=== PATIENT | male | born 1960 | race Caucasian/White ===

== ENCOUNTER 2016-04-25 11:11 | Outpatient (CLI) | payer MEDICAID ==
[~2016-04-25] VITALS: Ht 185.4 cm; Wt 145.5 kg
--- NOTE | ~2016-04-25 | HEMODYNAMI ---
PATIENT:MUSA WALDEN MEDICAL RECORD: [id number] : 62 LOCATION:DCRYSTAL ADMISSION DATE: 04/25/16 Generatedon:04/25/201615:10 Patient name: MUSA WADLEN Patient #: [id number] SSN: D OB: 1960 Date of study: 04/25/2016 Page: Of Hemodynamic Procedure Report Patient Data Patient Demographics Procedure consent was obtained First Name: MUSA Gender: Male Last Name: IRAM : 1960 Patient #: [id number] Age: 55 year(s) Race: Unknown Additional ID: [id number] Contact details Address: [address] [place] [address] State: [place] City: [place] Zip code: [address] Past Medical History Allergies Allergen Reaction Date Comments Reported Other allergy 04/25/2016 CEPHALOXIN Admission Admission Data Admission Date: 04/25/2016 Admission Time: 11:11 Admit Source: Other Lab Results Lab Result Date: 04/25/2016 Lab Result Time: 0:00 Biochemistry Name Units Result Min Max Creatinine mg/dl 0.9 --(-*--)-- 0.6 1.3 CBC Name Units Result Min Max Hemoglobin g/dl 14.7 --(-*--)-- 13.5 17.5 Procedure Procedure Types Cath Procedure Diagnostic Procedure [facility] w/Coronaries Procedure Description Procedure Date Procedure Date: 04/25/2016 Procedure Start Time: 14:48 Procedure End Time: 15:09 Procedure Staff Name Function Musa Diaz MD Performing Physician Romina Jeffers RN Nurse Sherry Ann RT Monitor Marco A Oneill RN Attorney Lawyer Zac Da Silva RT Scrub Procedure Data Cath Procedure Fluoroscopy Diagnostic fluoroscopy Total fluoroscopy Time: 5.7 time: 5.7 min min Diagnostic fluoroscopy Total fluoroscopy dose: dose: 475.27 mGy 475.27 mGy Contrast Material Contrast Material Type Amount (ml) Isovue 300 93 Entry Location Entry Primary Successful Side Size Upsize Upsize Entry Closure Young ccessful Closure Location (Fr) 1 (Fr) 2 (Fr) Remarks Device Remarks Radial Right 6 Fr Mechanical artery Short Compression Estimated blood loss: 5 ml Diagnostic catheters Device Type Used For End Catheter Placement Terumo 5Fr [place] 110cm Left Coronary catheter Angiography Terumo 5Fr [place] 110cm Right Coronary catheter Angiography Cordis Infinity 5Fr AL 1 LV Angiography catheter Procedure Complications No complications Procedure Medications Medication Administration Route Dosage Oxygen NC 2 l/min Heparin Flush Bag 2 bags (1000units/500ml NS) Lidocaine 2% added to field 20 Radial Cocktail added to field 1 syringe (Verapomil 2mg/Nitro 400mcg/Heparin 1500units) Versed I.V. 1 mg Fentanyl I.V. 50 mcg Versed I.V. 1 mg Fentanyl I.V. 50 mcg Versed I.V. 1 mg Fentanyl I.V. 50 mcg Radial Cocktail I.A. 1 syringe (Verapomil 2mg/Nitro 400mcg/Heparin 1500units) 0.9% NaCl I.V. bolus 250 ml Versed I.V. 1 mg Fentanyl I.V. 50 mcg Hemodynamics Rest HGB: 14.7 (g/dl) Heart Rate: 74 (bpm) Pressure Samples Time Site Value (mmHg) Purpose Heart Use Rate(bpm) 15:01 LV 168/12,24 Snapshot 89 15:01 LV 208/28,29 Snapshot 98 Gradients Valve Time Site Site Mean SEP/DFP Peak To Heart Use 1 2 (mmHg) (sec/min) Peak Rate (mmHg) (bpm) Aortic 15:02 LV AO 61 Snapshots Pre Cath Intra NCS Post Cath Vital Signs Time Heart Resp SPO2 NIBP (mmHg) Rhythm Pain Sedation Rate (ipm) (%) Status Level (bpm) 14:38:42 72 16 99 120/74(97) NSR 0 (11) 10(A) , No pain 14:43:17 76 17 99 139/71(102) NSR 0 (11) 10(A) , No pain 14:47:57 79 16 98 113/65(98) NSR 0 (11) 10(A) , No pain 14:52:30 84 13 97 83/60(80) NSR 0 (11) 9(A) , No pain 14:53:46 81 16 99 85/51(69) NSR 0 (11) 9(A) , No pain 14:57:59 78 16 98 103/73(94) NSR 0 (11) 9(A) , No pain 15:02:58 74 16 100 Measuring NSR 0 (11) 9(A) , No pain 15:03:19 76 15 100 106/76(92) NSR 0 (11) 9(A) , No pain 15:07:04 77 14 100 108/73(93) NSR 0 (11) 10(A) , No pain Medications Time Medication Route Dose Verified Delivered Reason Notes Effectiveness by by 14:42:34 Oxygen NC 2 l/min Musa Romina for low 02 JoeZay aguilar MD 14:42:43 Heparin Flush 2 bags Musa Musa used for Bag Carson Joe procedure (1000units/500ml MD JEAN-BAPTISTE NS) 14:42:57 Lidocaine 2% added 20ml Musa Gillisory used for to vial Carson Carson procedure field MD JEAN-BAPTISTE 14:43:05 Radial Cocktail added 1 Musa Musa used for (Verapomil to syringe Joe Carson procedure 2mg/Nitro field MD JEAN-BAPTISTE 400mcg/Heparin 1500units) 14:46:00 Versed I.V. 1 mg Musa Romina for sedation St. Zay Jeffers RN, MD 14:46:13 Fentanyl I.V. 50 mcg Musa Romina for sedation St. Zay Jeffers RN, MD 14:48:10 Versed I.V. 1 mg Musa Romina for sedation St. Zay Jeffers RN, MD 14:48:19 Fentanyl I.V. 50 mcg Musa Romina for sedation St. Zay Jeffers RN, MD 14:51:35 Versed I.V. 1 mg Musa Romina for sedation St. Zay Jeffers RN, MD 14:51:38 Fentanyl I.V. 50 mcg Musa Romina for sedation St. Zay Jeffers RN, MD 14:52:06 Radial Cocktail I.A. 1 Musa Musa for (Verapomil syringe Joe Joe vasodilation 2mg/Tracie JEAN-BAPTISTE MD 400mcg/Heparin 1500units) 14:52:51 0.9% NaCl I.V. 250 ml Musa Romina Per bolus St. Zay Jeffers RN physician 14:55:16 Versed I.V. 1 mg Musa Romina for sedation St. Zay Jeffers RN, MD 14:55:24 Fentanyl I.V. 50 mcg Musa Vanegas for sedation St. Zay Jeffers RN, MD Procedure Log Time Note 14:20:35 Marco A Oneill RN sent for patient. Start room use. 14:26:01 Admit Source: Other 14:26:43 Time tracking: Regular hours 14:26:47 Plan of Care:Hemodynamics will remain stable., Cardiac rhythm will remain stable., Comfort level will be maintained., Respiratory function will remain adequate., Patient/ family verbilizes understanding of procedure., Procedure tolerated without complication., Recovers from procedure without complications.. 14:26:50 Diagnostic Cath status Elective 14:29:17 Patient received from Pre/Post Procedure Room to CCL 3 Alert and oriented. Tansferred to table in Supine position. 14:29:18 Warm blankets applied, and kimmie hugger turned on for patient comfort. 14:29:18 Correct patient and procedure confirmed by team. 14:29:19 Signed procedure consent form obtained from patient. 14:29:20 ECG and BP/O2 sat monitors applied to patient. 14:29:21 Full Disclosure recording started 14:37:10 Vital chart was started 14:42:34 Oxygen 2 l/min NC was given by Romina Jeffers RN; for low 02 sats; 14:42:34 Rhythm: sinus bradycardia 14:42:42 Baseline sample Acquired. 14:42:43 Heparin Flush Bag (1000units/500ml NS) 2 bags was given by Musa Diaz MD; used for procedure; 14:42:51 H&P Date Dictated: 04/22/2016 Within 30 days and on chart., H&P Addendum completed by physician on day of procedure. (MUST COMPLETE FOR ALL OUTPATIENTS). 14:42:53 Pre-procedure instructions explained to patient. 14:42:53 Pre-op teaching completed and patient verbalized understanding. 14:42:54 Family in waiting room. 14:42:56 Patient NPO since Midnight. 14:42:57 Lidocaine 2% 20ml vial added to field was given by Musa Diaz MD; used for procedure; 14:43:05 Radial Cocktail (Verapomil 2mg/Nitro 400mcg/Heparin 1500units) 1 syringe added to field was given by Musa Diaz MD; used for procedure; 14:43:12 Patient allergic to Other allergyCEPHALOXIN 14:43:15 Is the patient allergic to Iodine/contrast media? No. 14:43:17 Is patient on blood thinner?No 14:43:20 Patient diabetic? No. 14:43:25 Previous problem with sedation/anesthesia? No ? 14:43:27 Snore? Yes 14:43:28 Sleep apnea? No 14:43:29 Deviated septum? No 14:43:30 Opens mouth fully? Yes 14:43:31 Sticks out tongue? Yes 14:43:33 Airway obstruction? No ? 14:43:36 Dentures? No ? 14:43:39 Pre procedure: right dorsailis pedis pulse 2+ Normal; easily identifiable; not easily obliterated 14:43:42 Modified Nick's test Ulnar < 7 seconds 14:43:44 Patient pain scale 0/10 ?. 14:43:49 IV patent on arrival in left hand with 0.9% NaCl at [facility]. 14:44:54 Lab Result : Creatinine 0.9 mg/dl 14:44:54 Lab Result : Hemoglobin 14.7 g/dl 14:45:34 Lab results completed and on chart. 14:45:39 Right Radial & Right Groin area was prepped with chlora-prep and draped in sterile fashion 14:45:40 Alarms reviewed by R. N. 14:45:41 Sharps counted by scrub and verified by R.N. 14:45:42 Final Timeout: patient, procedure, and site verified with staff and physician. All members of the team are in agreement. 14:45:45 Right Radial site verified by team. 14:45:48 Physical assessment completed. ASA score P 2 - A patient with mild systemic disease as per Musa Diaz MD. 14:45:52 Sedation plan: IV Moderate Sedation Versed, Fentanyl 14:46:00 Versed 1 mg I.V. was given by Romina Jeffers RN; for sedation; 14:46:01 Use device set Radial Dx 14:46:02 Acist Syringe opened to sterile field. 14:46:02 Cardinal Cath Pack opened to sterile field. 14:46:03 Bag Decanter opened to sterile field. 14:46:03 Terumo 6Fr Slender Glidesheath opened to sterile field. 14:46:04 St Julian 260cm J .035 wire opened to sterile field. 14:46:04 Acist Hand Control opened to sterile field. 14:46:05 Acist Manifold opened to sterile field. 14:46:05 Tegaderm 4 x 4 opened to sterile field. 14:46:13 Fentanyl 50 mcg I.V. was given by Romina Jeffers RN; for sedation; 14:46:45 Procedure started. 14:48:10 Versed 1 mg I.V. was given by Romina Jeffers RN; for sedation; 14:48:19 Fentanyl 50 mcg I.V. was given by Romina Jeffers RN; for sedation; 14:48:56 Local anesthetic to right radial artery with Lidocaine 2% by Musa Diaz MD.INITIAL ACCESS ONLY 14:50:14 A 6 Fr Short sheath was inserted into the Right Radial artery 14:51:35 Versed 1 mg I.V. was given by Romina Jeffers RN; for sedation; 14:51:38 Fentanyl 50 mcg I.V. was given by Romina Jeffers RN; for sedation; 14:51:45 Zero performed for pressure channel P1 14:51:48 Zero performed for pressure channel P1 14:51:52 Zero performed for pressure channel P1 14:52:06 Radial Cocktail (Verapomil 2mg/Nitro 400mcg/Heparin 1500units) 1 syringe I.A. was given by Musa Diaz MD; for vasodilation; 14:52:06 A Terumo 5Fr [place] 110cm catheter was advanced over the wire and used for Left Coronary Angiography. 14:52:51 0.9% NaCl 250 ml I.V. bolus was given by Romina Jeffers RN; Per physician; 14:55:16 Versed 1 mg I.V. was given by Romina Jeffers RN; for sedation; 14:55:24 Fentanyl 50 mcg I.V. was given by Romina Jeffers RN; for sedation; 14:57:09 A Terumo 5Fr [place] 110cm catheter was advanced over the wire and used for Right Coronary Angiography. 14:57:45 Catheter exchanged over wire. 14:57:57 A Kincast Infinity 5Fr AL 1 catheter was advanced over the wire and used for LV Angiography. 15:01:56 LV gram done using ALBA 15:02:31 Injector settings: Ml/sec: 5, Volume: 15, 15:02:33 Catheter removed. 15:03:01 Terumo TR Band Large opened to sterile field. 15:03:09 Sheath removed intact; hemostasis achieved with Mechanical Compression to the Right Radial artery. 15:03:12 Procedure ended.(Physican Out) 15:03:26 Fluoroscopy time 05.70 minutes. 15:03:32 Fluoroscopy dose: 475.27 mGy 15:03:32 Flurop Dose total: 475.27 15:03:38 Contrast amount:Isovue 300 93ml. 15:03:46 Sharps counted by scrub and verified by R.N. 15:03:48 TR band inflated with 12cc of air. 15:03:49 Insertion/operative site no bleeding no hematoma. 15:03:57 Post right radial artery:stable, clean and dry 15:03:59 Post Procedure Pulses reassessed and unchanged 15:04:03 Post-procedure physical assessment completed. ASA score P 2 - A patient with mild systemic disease as per Musa Diaz MD. 15:04:06 Post procedure rhythm: unchanged. 15:04:08 Estimated blood loss: 5 ml 15:04:09 Post procedure instruction explained to patient.Patient verbalizes understanding. 15:04:11 Patient needs reinforcement of post procedure teaching. 15:05:03 Procedure and supply charges have been captured, reviewed, submitted and are correct. 15:05:07 Procedure Complication : No complications 15:05:10 See physician's report for complete and final results. 15:09:29 Report given to Pre/Post Procedure Room. 15:09:32 Patient transfered to Pre/Post Procedure Room with Stretcher. 15:09:34 Procedure ended. 15:09:34 Full Disclosure recording stopped 15:09:41 End room use (Document Last) 15:10:10 Vital chart was stopped Device Usage Item Name Manufacture Quantity Catalog Hospital Part Current Minimal Lot# / Number Charge Number Stock Stock Serial# Code Chaim Acist 1 [id number] [id number] 028216 [id number] 20 Syringe [employer] Cardinal Cardinal 1 [id number] 94540 [id number] 5 Cath Pack Health Bag Microtek 1 [id number] [id number] 48088 [id number] 5 [employer] Terumo 6Fr Terumo 1 [id number] 890888 860058 673282 [address] [facility] 1 716327 370930 944680 262295 30 260cm J .035 wire Acist Hand Acist 1 45223 492851 587378 186125 5 Control [employer] Inc Acist Acist 1 79544 500071 441591 810447 5 Manifold Medical [employer] Inc Tegaderm 4 3M 1 1626W 291233 268746 625616 5 x 4 Terumo 5Fr Terumo 1 40-8997 396097 972038 409422 5 [place] 110cm catheter Cordis Cardinal 1 [id number] 614593 409417 828955 15 Hashtrack 5Fr AL 1 catheter Terumo TR Terumo 1 [id number] 994363 838048 40 Band Large Signature Audit [place] Stage Time Signature Unsigned Intra-Procedure 04/25/2016 Sherry 3:10:07 PM Counts RT(R) Signatures Monitor : Sherry Signature : Counts RT Date : Time : [id number] [place] [address]
[2016-04-25] MEDS ORDERED: PRAVACHOL40 MG PO (11:51)
[2016-04-25] MEDS ORDERED: ZESTRIL20 MG PO (11:51)
[2016-04-25 11:56] VITALS: BP 135/86; Ht 185.4 cm; Wt 145.5 kg
[2016-04-25 12:26] LABS: BASOPHILS 0.1 % (0.0-2.0); EOSINOPHILS 1.4 % (0-7); HEMATOCRIT 43.6 % (42.0-54.0); HEMOGLOBIN 14.7 g/dL (13.5-17.5); IMMATURE GRANULOCYTES 0.3 % (0-5); MCH 29.9 pg (26.0-34.0); MCHC 33.7 g/dL (31.0-37.0); MCV 88.8 fL (80.0-100.0); MEAN PLATELET VOLUME 10.1 fL (7.4-10.4); MONOCYTES 10.8 % (2-11); NEUTROPHILS 50.4 % (40-80); PLATELET COUNT 214 10x3/uL (130-400); RBC 4.91 10x6/uL (4.20-6.10); WBC 7.7 10x3/uL (4.8-10.8)
[2016-04-25 12:47] LABS: CALC OSMOLALITY 277 mosm/kg (275-300); CALCIUM 8.5 mg/dL (8.5-10.1); CARBON DIOXIDE 26.8 mmol/L (21.0-32.0); CHLORIDE - SERUM 103 mmol/L (98-107); CREATININE - SERUM 0.9 mg/dL (0.6-1.3); GLUCOSE 96 mg/dL (74-106); POTASSIUM - SERUM 4.2 mmol/L (3.5-5.1); SODIUM 138 mmol/L (136-145); UREA NITROGEN 18 mg/dL (7-18); eGFR NON AFRICAN AMERICAN > 90 mL/min (90-120)
--- NOTE | 2016-04-25 15:58 | NUR ---
1530-RIGHT WRIST- TR BAND CDI
--- NOTE | 2016-04-25 16:02 | NUR ---
1600- TR BAND REMAINS INTACT
--- NOTE | 2016-04-25 17:39 | NUR ---
1715- IV D'C WITH CATH TIP INTACT, TR BAND OFF- NO HEMATOMA OR BLEEDING NOTED, WRITTEN AND VERBAL INSTRUCTIONS GIVEN TO PATIENT AND .
--- NOTE | 2016-04-30 09:30 | OP ---
PATIENT NAME: VIVIANA WALDEN MEDICAL RECORD: [id number] :62 LOCATION:D.CAT ADMISSION DATE: SURGEON: VIVIANA WILLIAMSON MD DATE OF OPERATION: 04/25/2016 PROCEDURE: Left heart catheterization, selective coronary angiography, right artery approach. CATHETERS: A 5-[place] sheath, [place] catheter. The procedure was well tolerated and the patient returned to the [facility], sheath removed, a TR band was placed. FINDINGS: Left ventriculography in 30-degree ALBA view: Normal wall motion and normal systolic function. Of note, a 25-mm gradient across the aortic valve. CORONARY ANATOMY: Left main: Left main is free of disease. LAD: Free of disease in the diagonal system. CIRCUMFLEX: Free of disease in the marginal system. RIGHT CORONARY ARTERY: Dominant artery, gives rise to PDA, free of disease. IMPRESSION: 1. Early aortic stenosis. 2. Normal LV function. 3. No evidence of significant angiographic coronary artery disease. TRANSINT:[id number] Voice Confirmation ID: [id number] DOCUMENT ID: [id number] VIVIANA WILLIAMSON MD at 0930 CC: [id number] DICTATION DATE: 04/25/16 1506 DEHYDROGENATION CONVERTER OPERATOR: 04/25/16 1548 DEP CLI 04/25/16 [facility] [address] [place] [address]
== END 2016-04-25 17:30 | disposition home or self-care (01) ==
LOC: D.CATH 11:11
PROVIDERS: Internal Medicine Interventional Cardiology
DX: I35.0 Nonrheumatic aortic (valve) stenosis (principal)

== ENCOUNTER 2018-01-21 10:51 | Outpatient (CLI) | payer OTHER ==
[~2018-01-21] VITALS: Ht 185.4 cm; Wt 145.5 kg
--- NOTE | ~2018-01-21 | OP ---
PATIENT NAME: VIVIANA WALDEN MEDICAL RECORD: [id number] :62 LOCATION:D.CAT ADMISSION DATE: SURGEON: VIVIANA IWLLIAMSON MD DATE OF OPERATION: 01/21/2018 PROCEDURE: Cardioversion. After general sedation via TIVA via anesthesia, initial shock at 200 joules was unsuccessful in restoring sinus rhythm. Second shock at 300 joules restored atrial fibrillation to normal sinus rhythm. ASSESSMENT: Successful cardioversion. COMPLICATIONS: None. TRANSINT:[id number] Voice Confirmation ID: [id number] DOCUMENT ID: [id number] VIVIANA WILLIAMSON MD at 1302 CC: [id number] DICTATION DATE: 01/21/18 1359 SECTION HOUSEKEEPER: 01/21/18 1640 [facility] CLI 01/21/[address] [address]
--- NOTE | ~2018-01-21 | HEMODYNAMI ---
PATIENT:MUSA WALDEN MEDICAL RECORD: [id number] : 62 LOCATION:DRWE ADMISSION DATE: 01/21/18 Generatedon:01/21/201814:05 Patient name: MUSA WALDEN Patient #: [id number] SSN: D OB: 1960 Date of study: 01/21/2018 Page: Of Hemodynamic Procedure Report Patient Data Patient Demographics Procedure consent was obtained First Name: MUSA Gender: Male Last Name: IRAM : 1960 Patient #: [id number] Age: 57 year(s) Race: Unknown Additional ID: [id number] Contact details Address: [address] [place] [address] State: [place] City: [place] Zip code: [address] Past Medical History Allergies Allergen Reaction Date Comments Reported Other allergy 04/25/2016 CEPHALOXIN Admission Admission Data Admission Date: 01/21/2018 Admission Time: 10:51 Procedure Procedure Types Cath Procedure Diagnostic Procedure Cardioversion External MONE Procedure Description Procedure Date Procedure Date: 01/21/2018 Procedure Start Time: 13:44 Procedure End Time: 14:04 Procedure Staff Name Function Musa Corcoran MD Performing Physician Marco A Oneill RN Nurse Zac Da Silva RT Monitor Jacquelyn Hamoe Hi Lift Operator Daniel Fair MD Additional personnel Procedure Data Cath Procedure Fluoroscopy Diagnostic fluoroscopy Total fluoroscopy Time: 0 time: 0 min min Diagnostic fluoroscopy Total fluoroscopy dose: 0 dose: 0 mGy mGy Contrast Material Contrast Material Type Amount (ml) Isovue 300 0 Estimated blood loss: 0 ml Procedure Complications No complications Procedure Medications Medication Administration Route Dosage 0.9% NaCl I.V. 100 ml/hr Oxygen etCO2 Nasal cannula 2 l/min Refer to Anesthesia Notes for Sedation Medications Hemodynamics Rest Heart Rate: 85 (bpm) Snapshots Pre Cath Intra NCS Post Cath Vital Signs Time Heart Resp SPO2 etCO2 NIBP (mmHg) Rhythm Pain Sedation Rate (ipm) (%) (mmHg) Status Level (bpm) 13:38:30 76 12 97 0.7 138/94(109) NSR 0 (11) 10(A) , No pain 13:42:29 93 21 99 33.1 116/97(104) NSR 0 (11) 10(A) , No pain 13:46:37 106 30 106/89(102) NSR 0 (11) 10(A) , No pain 13:51:36 64 19 86 0 Measuring NSR 0 (11) 10(A) , No pain 13:52:32 62 18 97 0 126/79(121) NSR 0 (11) 10(A) , No pain 13:56:48 68 18 96 36.8 124/76(94) NSR 0 (11) 10(A) , No pain 14:01:04 58 17 96 15 121/76(92) NSR 0 (11) 10(A) , No pain Medications Time Medication Route Dose Verified Delivered Reason Notes Effective ness by by 13:38:51 0.9% NaCl I.V. 100 Musa Strickland Per ml/hr St Zay Oneill RN physician 13:39:01 Oxygen etCO2 2 Musa Strickland Per Nasal l/min St Zay Oneill RN physician cannula 13:39:11 Refer to Musa Strickland Per Anesthesia St Zay Oneill RN physician Notes for MD Sedation Medications Procedure Log Time Note 13:15:43 Marco A Oneill RN sent for patient. Start room use. 13:27:52 Procedure type changed to Cath procedure, Diagnostic procedure, Cardioversion External, MONE 13:28:44 Time tracking: Regular hours (M-F 7:00 - 5:00) 13:28:48 Plan of Care:Hemodynamics will remain stable., Cardiac rhythm will remain stable., Comfort level will be maintained., Respiratory function will remain adequate., Patient/ family verbilizes understanding of procedure., Procedure tolerated without complication., Recovers from procedure without complications.. 13:29:04 [employer] Specialist present for MONE. 13:31:49 Patient arrived from Pre/Post Procedure Room to [facility] 3. Patient remains on bed/stretcher for procedure. 13:31:51 Warm blankets applied, and kimmie hugger turned on for patient comfort. 13:31:51 Correct patient and procedure confirmed by team. 13:31:52 Signed procedure consent form obtained from patient. 13:31:53 ECG and BP/O2 sat monitors applied to patient. 13:32:25 Daniel Fair MD present and monitoring patient for TIVA. 13:37:24 Vital chart was started 13:38:51 0.9% NaCl 100 ml/hr I.V. was administered by Marco A Oneill RN; Per physician; 13:39:01 Oxygen 2 l/min etCO2 Nasal cannula was administered by Marco A Oneill RN; Per physician; 13:39:03 Baseline sample Acquired. 13:39:11 Refer to Anesthesia Notes for Sedation Medications was administered by Marco A Oneill RN; Per physician; 13:39:18 Rhythm: atrial fibrillation 13:39:19 Full Disclosure recording started 13:39:32 H&P Date Dictated: 01/09/2018 Within 30 days and on chart., H&P Addendum completed by physician on day of procedure. (MUST COMPLETE FOR ALL OUTPATIENTS). 13:39:34 Pre-procedure instructions explained to patient. 13:39:34 Pre-op teaching completed and patient verbalized understanding. 13:39:39 Family in patients room. 13:39:40 Patient NPO since Midnight. 13:39:42 Is the patient allergic to Iodine/contrast media? No. 13:39:43 Is patient on blood thinner?Yes 13:39:49 ACC The patient was administered the following blood thiners within the last 24 hours: Eliquis 13:39:51 Patient diabetic? No. 13:40:02 Previous problem with sedation/anesthesia? No ? 13:40:03 Snore? Yes 13:40:04 Sleep apnea? No 13:40:04 Deviated septum? No 13:40:05 Opens mouth fully? Yes 13:40:06 Sticks out tongue? Yes 13:40:07 Airway obstruction? No ? 13:40:10 Dentures? No ? 13:40:16 Patient pain scale 0/10 ?. 13:40:24 IV patent on arrival in right forearm with 0.9% NaCl at O. 13:40:34 Lab results completed and on chart. 13:40:47 Quick combo pads placed on patients chest and back. 13:41:02 Pt prepped for MONE/Cardioversion. 13:41:16 Quick Combo opened to sterile field. 13:42:03 Sedation plan: TIVA Medication:Propofol 13:42:53 --------ALL STOP TIME OUT------ 13:42:53 Final Timeout: patient, procedure, and site verified with staff and physician. All members of the team are in agreement. 13:42:59 Physical assessment completed. ASA score P 2 - A patient with mild systemic disease as per Musa Corcoran MD. 13:44:37 Procedure started. 13:44:40 MONE started. 13:49:51 MONE completed. 13:50:36 Defibrillator synced and charged to 200 Joules. 13:51:00 Shock delivered. 13:51:33 Defibrillator synced and charged to 300 Joules. 13:51:51 Shock delivered. 13:51:56 Patient cardioverted to sinus rhythm . 13:52:03 Procedure ended.(Physican Out) 13:56:06 Fluoroscopy time 00.00 minutes. 13:56:08 Fluoroscopy dose: 0 mGy 13:56:08 Flurop Dose total: 0 13:56:13 Contrast amount:Isovue 300 0ml. 13:57:15 Post-procedure physical assessment completed. ASA score P 2 - A patient with mild systemic disease as per Musa Corcoran MD. 13:57:21 Post procedure rhythm: sinus rhythm 13:57:24 Estimated blood loss: 0 ml 13:57:29 Post procedure instruction explained to patient.Patient verbalizes understanding. 13:57:30 Patient needs reinforcement of post procedure teaching. 13:58:17 Procedure and supply charges have been captured, reviewed, submitted and are correct. 13:58:20 Procedure Complication : No complications 14:04:23 Vital chart was stopped 14:04:23 See physician's report for complete and final results. 14:04:26 Report given to Pre/Post Procedure Room. 14:04:31 Patient transfered to Pre/Post Procedure Room with Stretcher. 14:04:33 Procedure ended. 14:04:33 Full Disclosure recording stopped 14:04:35 End room use (Document Last) Device Usage Item Manufacture Quantity Catalog Hospital Part Current Minimal Lot# / Name Number Charge Number Stock Sina cano# Code [id number] 1 [id number] Combo Signature Audit [place] Stage Time Signature Unsigned Intra-Procedure 01/21/2018 Zac Da Silva 2:05:25 PM RT(R) Signatures Monitor : Zac Da Silva RT Signature : Date : Time : [address] [place] [address]
--- NOTE | ~2018-01-21 | TEE ---
PATIENT:VIVIANA WALDEN MEDICAL RECORD: [id number] LOCATION:D[facility] AGE OF PATIENT: 57 ADMISSION DATE: 01/21/18 SEX: M REFERRING PHYSICIAN: INTERPRETING PHYSICIAN: VIVIANA WILLIAMSON MD TRANSESOPHAGEAL ECHOCARDIOGRAM Date: 01/21/18 MONE CHARGE Y INDICATIONS: PRE CARDIOVERSION - R/O LA APPENDAGE CLOT PREMEDICATIONS: PATIENT'S RESPONSE PROCEDURE DOPPLER MEASUREMENTS: LVIT LA PA RA LVOT RVOT Asc. Ao AV Gradient Peak AV Mean AV Area MV Gradient Peak MV Mean MV Area INTERPRETATION: Doppler: 2-D: COLOR FLOW DOPPLER NORMAL SALINE STUDY: MISCELLANOUS: DIAGNOSIS: PLAN: Waiter/Waitress:3 Dr. Diaz Microarray Analyst: 1 MARIAN STEINER COMMENTS: DATE OF SERVICE: 01/21/2018 TRANSESOPHAGEAL NOTE After general sedation via TIVA via anesthesia, transesophageal Omniplane probe was placed into distal esophagus and proximal stomach without difficulty. FINDINGS: LVH present. LV internal dimension normal. Difficult to fully assess focal wall motion secondary to underlying atrial fibrillation and TRANSESOPHAGEAL ECHOCARDIOGRAM REPORT [id number] ROSIE WALDEN variable R-R intervals. Overall, function appears to be preserved at 50%. Aortic valve shows restriction of motion, consistent with known [id number] . 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 There is mild AI present as well. Left atrium appears dilated. Left atrial appendage is well visualized with no evidence of thrombus and good contractility via Doppler interrogation. Mitral valve shows no prolapse. Mild MR. Right-sided chambers are grossly normal. Mild TR. At the end of procedure, transesophageal Omniplane probe was turned posterior and this showed no evidence of atherosclerotic debris in the descending aorta. IMPRESSION: No evidence of interatrial thrombus or smoke. Proceed to cardioversion. TRANSINT:[id number] Voice Confirmation ID: [id number] DOCUMENT ID: [id number] at 1302 CC: [id number] DICTATION DATE: 01/21/18 1358 TRUCK TRAILER FINAL INSPECTOR: 01/21/18 1634 DEP CLI 01/21/18 [facility] [address] [place] [address]
[~2018-01-21 10:51] MED LIST: PRAVACHOL40 MG PO; ZESTRIL20 MG PO
[2018-01-21] MEDS ORDERED: LISINOP/HCTZ TAB 10- PO (11:21)
[2018-01-21] MEDS ORDERED: BETAPACE 120 M120 MG PO (11:21)
[2018-01-21] MEDS ORDERED: ELIQUIS5 MG PO (11:22)
[2018-01-21] MEDS ORDERED: BYSTOLIC10 MG PO (11:22)
[2018-01-21 11:44] VITALS: BP 116/74; Ht 185.4 cm; Wt 145.5 kg
[2018-01-21 12:06] LABS: BASOPHILS 0.1 % (0-2); EOSINOPHILS 0.9 % (0-7); HEMATOCRIT 44.7 % (42.0-54.0); HEMOGLOBIN 15.5 g/dL (13.5-17.5); IMMATURE GRANULOCYTES 0.2 % (0-5); LYMPHOCYTES 32.9 % (15-50); MCH 31.1 pg (26.0-34.0); MCHC 34.7 g/dL (31.0-37.0); MCV 89.8 fL (80.0-100.0); MEAN PLATELET VOLUME 10.1 fL (7.4-10.4); MONOCYTES 9.7 % (2-11); NEUTROPHILS 56.2 % (40-80); PLATELET COUNT 236 10x3/uL (130-400); RBC 4.98 10x6/uL (4.20-6.10); RDW 12.6 % (11.5-14.5); WBC 8.7 10x3/uL (4.8-10.8)
[2018-01-21 12:09] LABS: INR 1.09 (0.85-1.17); PROTIME 13.7 SECONDS (11.6-15.0)
[2018-01-21 12:10] LABS: CALC OSMOLALITY 276 mosm/kg (275-300); CALCIUM 8.7 mg/dL (8.5-10.1); CARBON DIOXIDE 28.4 mmol/L (21.0-32.0); CHLORIDE - SERUM 103 mmol/L (98-107); CREATININE - SERUM 0.8 mg/dL (0.6-1.3); GLUCOSE 116 mg/dL (74-106); POTASSIUM - SERUM 4.5 mmol/L (3.5-5.1); SODIUM 137 mmol/L (136-145); UREA NITROGEN 17 mg/dL (7-18); eGFR NON AFRICAN AMERICAN > 90 mL/min (90-120)
== END 2018-01-21 15:19 | disposition home or self-care (01) ==
LOC: D.CATH 10:51
PROVIDERS: Internal Medicine Interventional Cardiology
DX: I48.91 Unspecified atrial fibrillation (principal); Z01.812 Encounter for preprocedural laboratory examination

== ENCOUNTER → 2018-11-18 13:39 | Outpatient (CLI) | payer OTHER ==
[2018-01-21 11:44] VITALS: BMI 42.3
[~2018-11-18 13:39] MED LIST changes: +BETAPACE 120 M120 MG PO; +BYSTOLIC10 MG PO; +ELIQUIS5 MG PO; +LISINOP/HCTZ TAB 10- PO
--- NOTE | 2018-11-23 08:39 | EC ---
PATIENT:VIVIANA WALDEN DATE OF SERVICE: 11/18/18 SEX: M MEDICAL RECORD: [id number] DATE OF : 62 LOCATION:[facility] AGE OF PATIENT: 58 ADMISSION DATE: 11/18/18 REFERRING PHYSICIAN: INTERPRETING PHYSICIAN: VIVIANA WILLIAMSON MD ECHOCARDIOGRAM REPORT ECHO CHARGES 4 ECHO COMPLETE Date: 11/18/18 CLINICAL DIAGNOSIS: H/O A-FIB/HTN ECHOCARDIOGRAPHIC MEASUREMENTS (adult normal given) AC root (d.<3.7cm) 4.1 cm LV Septum d (<1.2 cm> 1.7 cm Valve Excursion 1.0 cm LV Septum (systole) 2.8 cm Left Atria (s.<4.0cm> 3.5 cm LVPW d(<1.2cm) 1.8 cm RV (d.<2.3cm) 2.9 cm LVPW (sytole) 2.3 cm LV diastole(<5.6CM) 5.4 cm MV E-F(>70mm/sec) cm LV systole 2.7 cm LVOT Diameter 2.3 cm MV exc.(>10mm) cm Est.ejection fraction (50-75%) % DOPPLER: LVIT cm/sec A 62.0 cm/sec E 91.0 cm/sec LA cm/sec RVSP 27.0 mmHg LVOT 189 cm/sec AOP1/2T m/s Asc. Ao 333 cm/sec RVOT 68.0 cm/sec RA cm/sec PA 107 cm/sec AV Gradient Peak 44.3 mmHg AV Mean 25.3 mmHg AV Area 2.2 cm MV Gradient Peak 4.7 mmHg MV Mean 1.4 mmHg MV Area cm COMMENTS: OP - HC Gut Puller: 1 MARIAN SHEIKHOE Bankruptcy Manager: 3 Dr. Diaz TAPE# PACS Pericardial Effusion N DATE OF SERVICE: Adequate 2D, color flow imaging, spectral Doppler, and M-Mode. LVH is present. LV internal dimensions are normal. Wall motion is normal. EF is greater than or equal to 55%. Aortic valve is calcified with restriction of leaflet motion. Peak gradient of 44 mmHg putting this in moderate range. There is mild AI present as well. Left atrium is normal at 3.5 cm. Mitral valve shows no prolapse. Trace MR. Right-sided chambers grossly normal. Trace TR. ECHOCARDIOGRAM REPORT [id number] VIVIANA WALDEN TRANSINT:[id number] Voice Confirmation ID: [id number] DOCUMENT ID: [id number] VIVIANA WILLIAMSON MD at 0839 CC: [id number] DICTATION DATE: 11/19/18 1618 AGRONOMY INTERNSHIP: 11/20/18 0022 DEP CLI 11/18/18 [place] [id number] [place] [id number]
== END | disposition home or self-care (01) ==
LOC: D.HCCARDIO 13:39
PROVIDERS: ATTEND Internal Medicine Interventional Cardiology
DX: I48.91 Unspecified atrial fibrillation (principal)